=== PATIENT | female | born 1990 | race Caucasian/White ===

== ENCOUNTER 2017-11-12 21:25 | Emergency (ER) | payer SELFPAY ==
[~2017-11-12] VITALS: Ht 177.8 cm; Wt 72.2 kg
[~2017-11-12 21:25] MED LIST: CYCL5TAB PO; TYLE3 PO; Z.0.NO CURRENT MEDS
[2017-11-12 21:32] VITALS: BP 117/65; PULSE 76; RESP 18; TEMP 98.8; O2SAT 97
--- NOTE | 2017-11-12 22:40 | PD ---
HPI Chief Complaint: Musculoskeletal Complaint Time Seen by Provider: 22:35 Travel History International Travel<30 days: No Contact w/Intl Traveler<30days: No Traveled to known affect area: No History of Present Illness HPI 27-year-old female presents to the emergency department complaint of right shoulder right scapula neck pain status post non-syncopal slip and fall at 2 AM on Monday morning. Patient states she was trying to use a modified skateboard and lost her balance and fell. Patient states she landed on her right side. Patient states she did not hit her head did not have loss of consciousness denies any midline neck pain does not have any upper extremity or lower extremity numbness tingling or weakness denies any back pain rib pain chest pain shortness of breath abdominal pain pelvic pain or other extremity pain. Patient is right-handed. Last period was 1 month ago and normal for her and denies . Patient has had some mild dysuria and flank discomfort. Patient rates overall discomfort as mild to moderate note she cannot fully abduct her right shoulder. Patient was taken Aleve for symptom relief. [facility] [place] Past Medical History Narrative Medical Negative past medical history negative surgical history occasional alcohol use occasional tobacco use; nursing notes reviewed Diminished Hearing: No Tetanus Vaccination: Unknown Influenza Vaccination: No ?: Not Social History Alcohol Use: Yes (soc) Tobacco Use: Yes (soc) Substance Use: No Allergies-Medications (Allergen,Severity, Reaction): Coded Allergies: No Known Allergies (Verified , 06/18/11) Reported Meds & Prescriptions Reported Meds & Active Scripts Active Tylenol #3 (Acetaminophen/Codeine Phosphate) 300 Mg/30 Mg Tab 1 Tab PO TIDPRN FOR PAIN Flexeril (Cyclobenzaprine HCl) 5 Mg Tab 5 Mg PO BIDPRN UNKNOWN DOSE Reported No Current Meds (Miscellaneous Medication) Replaced By [facility] Review of Systems Except as stated in HPI: all other systems reviewed are Neg Physical Exam Narrative GENERAL: Well-developed well-nourished female no acute distress or respiratory distress; GCS 15 SKIN: Warm and dry. HEAD: Atraumatic. Normocephalic. No scalp soft tissue tenderness or soft tissue swelling. No abrasion no laceration or bony abnormality. EYES: Pupils equal and round. No scleral icterus. No injection or drainage. ENT: No nasal bleeding or discharge. Mucous membranes pink and moist. NECK: Trachea midline. No JVD. No midline tenderness to direct palpation along the cervical spine no bony step-off neck is supple mild tenderness to palpation along the right lateral neck and trapezius musculature. CARDIOVASCULAR: Regular rate and rhythm. RESPIRATORY: No accessory muscle use. Clear to auscultation. Breath sounds equal bilaterally. GASTROINTESTINAL: Abdomen soft, non-tender, nondistended. Hepatic and splenic margins not palpable. MUSCULOSKELETAL: Extremities without clubbing, cyanosis, or edema. No obvious deformities. Patient has intact range of motion of the right upper extremity except for decreased abduction less than 90. Distally extremities neurovascular tendon intact with brisk capillary refill less than 2 seconds good strength 5/5 sensory exam intact no deformity and capillary refill brisk and less than 2 seconds with radial and ulnar pulses 2+ to palpation. NEUROLOGICAL: Awake and alert. No obvious cranial nerve deficits. Motor grossly within normal limits. Five out of 5 muscle strength in the arms and legs. Normal speech. PSYCHIATRIC: Appropriate mood and affect; insight and judgment normal. Data Data Last Documented VS Vital Signs Date Time Temp Pulse Resp B/P (MAP) Pulse Ox O2 Delivery O2 Flow Rate FiO2 11/12/17 21:32 98.8 76 18 117/65 (82) 97 Orders Orders Urinalysis - C+S If Indicated (11/12/17 22:35) Ed Urine Pregnancytest Poc (11/12/17 22:35) Scapula (11/12/17 ) Shoulder, Complete (>2vws) (11/12/17 ) Spine, Cervical - Ltd (Ap&Lat) (11/12/17 ) Support Splint (11/13/17 00:09) Labs Laboratory Tests Test 11/12/17 22:44 Urine Collection Type CLEAN CATCH Urine Color YELLOW Urine Turbidity SL CLOUDY Urine pH 7.5 Urine Specific [place] 1.020 Urine Protein NEG mg/dL Urine Glucose (UA) NEG mg/dL Urine Ketones TRACE mg/dL Urine Occult Blood NEG Urine Nitrite NEG Urine Bilirubin NEG Urine Urobilinogen 4.0 MG/DL Urine Leukocyte Esterase SMALL Urine WBC 0-2 /hpf Urine Squamous Epithelial Cells 0-5 /hpf Urine Amorphous Sediment MOD Urine Mucus FEW /lpf Microscopic Urinalysis Comment CULT NOT INDICATED MDM Medical Decision Making Medical Screen Exam Complete: Yes Emergency Medical Condition: Yes Medical Record Reviewed: Yes Interpretation(s) Vital Signs Date Time Temp Pulse Resp B/P (MAP) Pulse Ox O2 Delivery O2 Flow Rate FiO2 11/12/17 21:32 98.8 76 18 117/65 (82) 97 Differential Diagnosis Contusion sprain strain fracture subluxation dislocation uti Narrative Course Urinalysis specimen collected and sent for resulting imaging studies ordered Diagnosis Primary Impression: Right shoulder injury Qualified Codes: S49.91XA - Unspecified injury of right shoulder and upper arm , initial encounter Referrals: Orthopedist call for appointment Primary Care Physician 2 days Patient Instructions: General Instructions Departure Forms: Tests/Procedures, Work Release Special Instructions: may return to full duty 11/14 Additional Instructions: Wear sling x 2 days Follow-up with primary care provider Follow-up with orthopedist as needed call office for appointment Return to the emergency department for any concerns or change in condition Take ibuprofen/Advil/Motrin 600 mg as often as every 6 hours as needed for pain Associates inflammation Use ice intermittently for first 12-24 hrs. Disposition: 01 DISCHARGE HOME Condition: Stable Rita Palacios MD Nov 12, 2017 22:40
[2017-11-12 22:50] LABS: BILIRUBIN, URINE NEG (NEG); BLOOD, URINE NEG (NEG); GLUCOSE,URINE NEG (NEG); KETONE, URINE TRACE mg/dL (NEG); NITRITE,URINE NEG (NEG); PH, URINE 7.5 (5.0-8.5); URINE COLOR YELLOW (YELLW/STRAW); URINE LEUKOCYTE ESTERASE SMALL (NEG)
[2017-11-12 23:06] LABS: MUCUS URINE FEW /lpf (OCC)
[2017-11-12 23:07] LABS: AMORPHOUS SEDIMENT, URINE MOD; SQUAMOUS EPITHELIAL CELL URINE 0-5 /hpf (0-5)
[2017-11-12 23:08] LABS: WBC, URINE 0-2 /hpf (0-5)
--- NOTE | 2017-11-12 23:50 | RADRPT ---
EXAM DATE/TIME: 11/12/2017 22:49 [facility] COMPARISON: No previous studies available for comparison. INDICATIONS : Slip and fall onto right shoulder off a skateboard. MEDICAL HISTORY : None. SURGICAL HISTORY : None. ENCOUNTER: Initial ACUITY: 1 day PAIN SCORE: 6/10 LOCATION: Right shoulder. FINDINGS: Two view examination of the right scapula demonstrates no evidence of fracture. The glenohumeral and acromioclavicular joints are maintained. The visualized right upper ribs are intact. Right clavicl e is intact. Bony mineralization is normal. CONCLUSION: Osseous structures the shoulder are grossly intact in this 2 view examination. Khanh Christianson MD on November 12, 2017 at 23:47 Board Certified Radiologist. This report was verified electronically.
--- NOTE | 2017-11-12 23:51 | RADRPT ---
EXAM DATE/TIME: 11/12/2017 22:49 [facility] COMPARISON: No previous studies available for comparison. INDICATIONS : Slip and fall onto right shoulder off a skateboard. MEDICAL HISTORY : None. SURGICAL HISTORY : None. ENCOUNTER: Initial ACUITY: 1 day PAIN SCORE: 6/10 LOCATION: Right shoulder FINDINGS: Multiple view examination of the right shoulder demonstrates no evidence of fracture or dislocation. The glenohumeral and acromioclavicular joints are maintained. There is normal range of motion betwe en internal and external rotation. Bone island in the subglenoid region. Bony mineralization is nor mal. CONCLUSION: No evidence of fracture or dislocation. A Khanh Christianson MD on November 12, 2017 at 23:49 Board Certified Radiologist. This report was verified electronically.
--- NOTE | 2017-11-12 23:52 | RADRPT ---
EXAM DATE/TIME: 11/12/2017 22:49 [facility] COMPARISON: No previous studies available for comparison. INDICATIONS : Slip and fall off a skateboard. MEDICAL HISTORY : None. SURGICAL HISTORY : None. ENCOUNTER: Initial ACUITY: 1 day PAIN SCORE: 4/10 LOCATION: neck FINDINGS: 2 view examination the cervical spine demonstrates mild reversal of the upper cervical lordosis. No evidence of compression deformity or spondylolisthesis. The atlantoaxial articulation is intact. Pr evertebral soft tissues are normal thickness. CONCLUSION: Negative two-view examination other than reversal of the upper cervical lordosis. Khanh Christianson MD on November 12, 2017 at 23:49 Board Certified Radiologist. This report was verified electronically.
== END 2017-11-13 00:40 | disposition home or self-care (01) ==
LOC: PHEFT 21:25
DX: S49.91XA Unspecified injury of right shoulder and upper arm, initial encounter (principal); W01.0XXA Fall on same level from slipping, tripping and stumbling without subsequent striking against object, initial encounter; Y93.51 Activity, roller skating (inline) and skateboarding; M54.2 Cervicalgia; R30.0 Dysuria; Z72.0 Tobacco use
CPT/HCPCS: 72040; 73010; 73030; 81001; 84703; 99284